=== PATIENT | female | born 1940 | race Caucasian/White ===

== ENCOUNTER 2022-10-18 17:07 | Emergency (ER) | payer MEDICARE ==
[~2022-10-18] VITALS: Ht 157.5 cm; Wt 64.4 kg
--- NOTE | 2022-10-18 17:20 | NUR ---
Pt seen by MD for bedside eval. Safety measures in place. Will continue to monitor.
--- NOTE | 2022-10-18 17:20 | NUR ---
PT DOES NOT REMEMBER THE NAMES AND DOSAGES OF HER HOME MEDICATION.
[2022-10-18 17:30] LABS: HEMATOCRIT 37.3 % (31.2-41.9); MEAN CORPUSCULAR HEMOGLOBIN 31.8 uug (24.7-32.8); MEAN CORPUSCULAR VOLUME 94.8 fL (75.5-95.3); PLATELET COUNT (AUTO) 282 K/uL (179-408)
--- NOTE | 2022-10-18 17:43 | NUR ---
UA sent to lab.
[2022-10-18 17:46] LABS: *BILIRUBIN,URIN NEGATIVE (NEGATIVE); *CLARITY,URINE CLEAR (CLEAR); *COLOR,URINE YELLOW (YELLOW); *KETONES,URINE 1+ (NEGATIVE); *UROBILINOGEN,URINE 0.2 E.U./dl (NORMAL); LEUKOCYTE ESTERASE ,URINE 1+ (NEGATIVE); NITRITE, URINE POSITIVE (NEGATIVE); PH,URINE 5.5 (5.0-8.0); UGLUCOSE NEGATIVE (NEGATIVE)
[2022-10-18 17:49] LABS: *BLOOD, URINE TRACE (NEGATIVE)
[2022-10-18 17:52] LABS: ALANINE AMINOTRANSFERASE 20 U/L (14-59); ALKALINE PHOSPHATASE 108 U/L (50-136); ASPARTATE AMINOTRANSFERASE 15 U/L (15-37); BILIRUBIN,DIRECT 0.1 mg/dL (0.0-0.2); BILIRUBIN,TOTAL 0.3 mg/dL (0.2-1.0); CARBON DIOXIDE 28 mmol/L (21-32); CHLORIDE 104 mmol/L (98-107); GLUCOSE 109 mg/dL (74-106); TOTAL PROTEIN, SERUM 7.3 g/dL (6.4-8.2); UREA NITROGEN, BLOOD 18 mg/dL (7-18)
[2022-10-18 18:00] LABS: RBC,URINE 0-3 /HPF (0-3)
[2022-10-18 18:01] LABS: BACTERIA,URINE MANY /HPF (NONE SEEN); SQUAMOUS EPITHELIAL CELL,UR FEW /HPF (NONE SEEN); WBC,URINE 20-50 /HPF (0-3)
--- NOTE | 2022-10-18 18:38 | NUR ---
Patient discharged to home in stable condition. Pt was picked up by friend via care. Written and verbal after care instructions given. Patient verbalizes understanding of instructions. Stressed follow up or return to ER for worsening s/s.
[2022-10-18 18:47] VITALS: BP 137/91
[2022-10-19] MEDS ORDERED: LEVO125T8 PO (17:36)
[2022-10-19] MEDS ORDERED: PRIM250T32 PO (19:56)
[2022-10-19] MEDS ORDERED: CARB1TAB21 PO (19:56)
== END 2022-10-18 18:47 | disposition home or self-care (01) ==
LOC: ER 17:09
DX: Z04.3 Encounter for examination and observation following other accident (principal); R07.89 Other chest pain; W18.39XA Other fall on same level, initial encounter; Y93.89 Activity, other specified; Y92.89 Other specified places as the place of occurrence of the external cause; Y99.8 Other external cause status
CPT/HCPCS: 36415; 71045; 84484; 85025; 93005; A4663

== ENCOUNTER 2022-10-19 11:48 | Inpatient (IN) | payer MEDICARE ==
[~2022-10-19] VITALS: Ht 157.5 cm; Wt 67.0 kg
--- NOTE | 2022-10-19 11:58 | NUR ---
PT DOES NOT TREMEMBER NAMES AND DOSAGES OF HER HOME MEDICATION.
[2022-10-19 12:14] LABS: HEMATOCRIT 37.6 % (31.2-41.9); MEAN CORPUSCULAR HEMOGLOBIN 32.2 uug (24.7-32.8); MEAN CORPUSCULAR VOLUME 94.5 fL (75.5-95.3); PLATELET COUNT (AUTO) 279 K/uL (179-408)
[2022-10-19 12:25] LABS: CARBON DIOXIDE 27 mmol/L (21-32); CHLORIDE 105 mmol/L (98-107); CREATININE 1.1 mg/dL (0.6-1.3); GLUCOSE 118 mg/dL (74-106); UREA NITROGEN, BLOOD 22 mg/dL (7-18)
[2022-10-19 12:33] LABS: ALANINE AMINOTRANSFERASE 32 U/L (14-59); ALKALINE PHOSPHATASE 105 U/L (50-136); ASPARTATE AMINOTRANSFERASE 52 U/L (15-37); BILIRUBIN,DIRECT 0.1 mg/dL (0.0-0.2); BILIRUBIN,TOTAL 0.4 mg/dL (0.2-1.0); LIPASE 51 U/L (73-393); TOTAL PROTEIN, SERUM 7.4 g/dL (6.4-8.2)
[2022-10-19] MEDS: IV NORMAL SALINE 500 ML BAG IV ONE ×2 (12:44→13:13)
[2022-10-19 12:53] LABS: *BILIRUBIN,URIN NEGATIVE (NEGATIVE); *BLOOD, URINE 2+ (NEGATIVE); *CLARITY,URINE CLEAR (CLEAR); *COLOR,URINE YELLOW (YELLOW); *KETONES,URINE 3+ (NEGATIVE); *UROBILINOGEN,URINE 0.2 E.U./dl (NORMAL); LEUKOCYTE ESTERASE ,URINE 1+ (NEGATIVE); NITRITE, URINE POSITIVE (NEGATIVE); PH,URINE 5.5 (5.0-8.0); UGLUCOSE NEGATIVE (NEGATIVE)
[2022-10-19 13:01] LABS: WBC,URINE 50-80 /HPF (0-3)
[2022-10-19 13:02] LABS: BACTERIA,URINE MANY /HPF (NONE SEEN)
[2022-10-19] MEDS ORDERED: CEFTRIAXONE 1 G in IV DEXTROSE 5% 50 ML IV ONE (13:15)
[2022-10-19] MEDS ORDERED: CEFTRIAXONE /D5W 50ML IVPB **ER PYXIS IV ONE (13:25)
--- NOTE | 2022-10-19 14:15 | NUR ---
Pt sleeping, no distress noted.
--- NOTE | 2022-10-19 16:00 | NUR ---
Pt sleeping, no distress noted.
[2022-10-19] MEDS ORDERED: LEVO125T8 PO (17:36)
--- NOTE | 2022-10-19 17:45 | NUR ---
Pt sleeping, arouses easily, no complaints, no distress noted.
--- NOTE | 2022-10-19 19:25 | NUR ---
Pt is noted in bed Lethargic but responsive as report is received from the off going nurse that Pt was brought from home by family due to S/P Fall and she is been admitted to Tele , Room 302. Pt care continue as report will be given to 3rd Floor Nurse.
[2022-10-19] MEDS ORDERED: MORPHINE SULFATE 2 MG/1 ML DISP.SYRIN IV PRN (19:45)
[2022-10-19] MEDS ORDERED: ONDANSETRON 4 MG/2 ML VIAL IV PRN (19:45)
[2022-10-19] MEDS ORDERED: ACETAMINOPHEN 325 MG TABLET PO PRN (19:45)
[2022-10-19] MEDS ORDERED: PRIM250T32 PO (19:56)
[2022-10-19] MEDS ORDERED: CARB1TAB21 PO (19:56)
--- NOTE | 2022-10-19 20:30 | NUR ---
Pt care continue as report is given to the 3rd Floor RN Sulma as Pt is been admitted under the care off DR. Scott , Tele status Room 302. Pt care continue.
--- NOTE | 2022-10-19 20:45 | NUR ---
Pt is noted off the unit to the 3RD Floor Room 302 as she is stable. Pt care continue.
[2022-10-19] MEDS: DOCUSATE SODIUM 100 MG CAPSULE PO SCH (21:00)
[2022-10-19 21:12] VITALS: BP 133/53
[2022-10-19] MEDS: IV 1/2NS 1000 ML 1,000 ML IV PRN (22:04)
[2022-10-20] MEDS ORDERED: REMEDY ESSENTIAL ZINC PASTE 113 GM TOP PRN (03:00)
[2022-10-20 04:28] VITALS: BP 124/52
[2022-10-20 06:32] LABS: HEMATOCRIT 33.6 % (31.2-41.9); MEAN CORPUSCULAR HEMOGLOBIN 31.7 uug (24.7-32.8); MEAN CORPUSCULAR VOLUME 95.7 fL (75.5-95.3); PLATELET COUNT (AUTO) 230 K/uL (179-408)
[2022-10-20] MEDS: PANTOPRAZOLE SODIUM 40 MG TABLET.DR PO SCH (06:35)
[2022-10-20 07:05] LABS: THYROID STIMULATING HORMONE < 0.007 mIU/mL (0.358-3.740)
[2022-10-20 07:06] LABS: CREATINE KINASE, TOTAL 779 U/L (26-192)
--- NOTE | 2022-10-20 07:07 | NUR ---
REPORT GIVEN TO EVERETT MARK
[2022-10-20 07:19] LABS: ALANINE AMINOTRANSFERASE 31 U/L (14-59); ALKALINE PHOSPHATASE 90 U/L (50-136); ASPARTATE AMINOTRANSFERASE 63 U/L (15-37); BILIRUBIN,TOTAL 0.4 mg/dL (0.2-1.0); CARBON DIOXIDE 26 mmol/L (21-32); CHLORIDE 107 mmol/L (98-107); CHOLESTEROL 186 mg/dL (<200); GLUCOSE 85 mg/dL (74-106); HDL CHOLESTEROL 46 mg/dL (40-60); MAGNESIUM 1.8 mg/dL (1.8-2.4); PHOSPHOROUS 2.9 mg/dL (2.5-4.9); POTASSIUM 3.8 mmol/L (3.5-5.1); TOTAL PROTEIN, SERUM 6.2 g/dL (6.4-8.2); TRIGLYCERIDES 166 MG/DL (30-150); UREA NITROGEN, BLOOD 22 mg/dL (7-18)
--- NOTE | 2022-10-20 07:45 | NUR ---
AWAKE ALERT AND VERBALLY RESPONSIVE RESTING COMFORTABLY IN BED DENIES PAIN OR SS OF DISTRESS. REQUIRES MIN MAX ASSIST IN ALL AREAS OF ADLS. ON CONTINUOUS IVF 1/2 NS 80 MLS/HR. SR ON MONITOR
[2022-10-20] MEDS ORDERED: LEVOTHYROXINE SODIUM 125 MCG TABLET PO SCH (09:00)
[2022-10-20] MEDS: IV 1/2NS 1000 ML 1,000 ML IV PRN ×2 (09:42→23:22)
[2022-10-20 11:30] VITALS: BP 127/52
--- NOTE | 2022-10-20 12:00 | NUR ---
NO ACUTE CHANGE FROM MORNING ASSESSMENT.
[2022-10-20] MEDS: CEFTRIAXONE 1 G in IV DEXTROSE 5% 50 ML IV SCH (13:25)
[2022-10-20] MEDS: CYANOCOBALAMIN 1000 MCG/ML VIAL IM SCH (15:16)
[2022-10-20 16:00] VITALS: BP 128/60
--- NOTE | 2022-10-20 16:29 | NUR ---
CONTINUE WITH IV ANTIBIOTIC NO SIGNS OF ALLERGY REACTION. REMAINS SR ON MONITOR
[2022-10-20 20:00] VITALS: BP 109/48
[2022-10-20] MEDS: DOCUSATE SODIUM 100 MG CAPSULE PO SCH (20:10)
[2022-10-21] VITALS: BP_SYST 112; BP_SYST 123; BP_DIAS 45; BP_DIAS 57
--- NOTE | 2022-10-21 | NUR ---
CT HEAD W/O CONTRAST ORDERED, OK TO DO IN AM PER ,.
[2022-10-21 04:00] VITALS: BP 107/52
[2022-10-21] MEDS: PANTOPRAZOLE SODIUM 40 MG TABLET.DR PO SCH (06:07)
--- NOTE | 2022-10-21 06:20 | NUR ---
Slept comfortably. Not in apparent distress. At 2130, Bladder scanner done, showed 256 ml. At 0400, pt voided. No signs of urinary retention. Kept clean and dry. All needs attended. Safety measures maintained.
[2022-10-21 06:36] LABS: HEMATOCRIT 33.9 % (31.2-41.9); MEAN CORPUSCULAR HEMOGLOBIN 32.1 uug (24.7-32.8); MEAN CORPUSCULAR VOLUME 96.1 fL (75.5-95.3); PLATELET COUNT (AUTO) 216 K/uL (179-408)
[2022-10-21 06:55] LABS: CREATININE 0.8 mg/dL (0.6-1.3); MAGNESIUM 1.8 mg/dL (1.8-2.4); PHOSPHOROUS 2.9 mg/dL (2.5-4.9); POTASSIUM 3.5 mmol/L (3.5-5.1)
[2022-10-21] MEDS ORDERED: LEVOTHYROXINE SODIUM 125 MCG TABLET PO SCH (07:00)
[2022-10-21 07:01] LABS: THYROID STIMULATING HORMONE 0.008 mIU/mL (0.358-3.740)
[2022-10-21] MEDS: CYANOCOBALAMIN 1000 MCG/ML VIAL IM SCH (08:41)
[2022-10-21] MEDS: ENSURE ENLIVE (VAN) 240 ML LIQUID PO SCH ×2 (08:46→17:36)
--- NOTE | 2022-10-21 09:00 | NUR ---
AWAKE ALERT RESPONDED APPROPRIATELY BUT IS SOMEWHAT DISORIENTED ALL NEEDS ANTICIPATED AND SATISFIED MAX ASSIST FOR ALL ADL MADE COMFORTABLE WILL CONTINUE TO OBSERVE.
[2022-10-21 11:47] VITALS: BP 142/58
[2022-10-21] MEDS: CEFTRIAXONE 1 G in IV DEXTROSE 5% 50 ML IV SCH (12:48)
[2022-10-21] MEDS: IV 1/2NS 1000 ML 1,000 ML IV PRN (13:27)
--- NOTE | 2022-10-21 14:00 | NUR ---
REMAIN ON IV ATB ORDERED WITH NO ADVERSE OR ALLERGIC REACTIONS AT THIS TIME.
--- NOTE | 2022-10-21 15:00 | NUR ---
PATIENT TAKEN BY BED TO RADIOLOGY DEPT FOR CT CHEST ORDERED PATIENT WAS NOT AGREEING TO GO BUT WAS EVENTUALLY CONVINCED AND IT WAS DONE.
[2022-10-21 16:00] VITALS: BP 146/51
--- NOTE | 2022-10-21 18:50 | NUR ---
PATIENT SEEN IN BED VERY RESTLESS AND AGGRESSIVE HER HEAD IS LYING ACROSS THE BED SCREAMING AT THE TOP OF HER VOICE VERY CONFUSED AND DISORIENTED AT RISKS FOR FALL SO THE FIRST STEP SURINDER DEFLATED FOR SAFETY DR NICHOLS NOTIFIED WITH NO NEW ORDERS AT THIS TIME.
--- NOTE | 2022-10-21 19:30 | NUR ---
RECD PT IN BED,VERY RESTLESS AND AGITATED, SCREAMING SO LOUDLY., VERY CONFUSED. DR. NICHOLS NOTIFIED AND OBTAINED MEDICATION TO CALM HER DOWN, , REPOSITIONED FOR COMFORT.OON TELE SINUS R/ SINUS,TACH 128, ,KEPT DRY AND CLEAN,
[2022-10-21 20:00] VITALS: BP 169/74
[2022-10-21] MEDS: LORAZEPAM 2 MG/1 ML VIAL IV PRN (20:43)
--- NOTE | 2022-10-21 20:48 | NUR ---
ATIVAN GIVEN IV ORDERED,IVFLUID INFUSING WELL VIARIGHT FORARM, CHECKED FOR SSX INFILTRATION, NONE NOTED.
[2022-10-21] MEDS: DOCUSATE SODIUM 100 MG CAPSULE PO SCH (22:00)
[2022-10-21] MEDS: ENALAPRILAT DIHYDRATE 1.25 MG/1 ML VIAL IV PRN (22:03)
--- NOTE | 2022-10-21 22:03 | NUR ---
BP [id number], NOTIFIED RE:ABOVE, VASOTEC ORDERED FOR SYSTOLIC BP ABOVE 150, RECHECKED AFTER 30 MIN.128/60, RESTING FAIRLY WELL..SINUS 76.MONITORED CLOSELY .
[2022-10-22] VITALS: BP 123/57
[2022-10-22] MEDS: LORAZEPAM 2 MG/1 ML VIAL IV PRN (04:42)
--- NOTE | 2022-10-22 05:19 | NUR ---
BLADDER SCAN DONE, INSIGNIFICCAT NERY NOTED, PT WAS INCONTINENT X 3,. DIAPER VERY SATURATED
[2022-10-22] MEDS: IV 1/2NS 1000 ML 1,000 ML IV PRN ×2 (05:29→21:43)
[2022-10-22] MEDS: LEVOTHYROXINE SODIUM 75 MCG TABLET PO SCH (06:40)
[2022-10-22 06:58] LABS: HEMATOCRIT 32.4 % (31.2-41.9); MEAN CORPUSCULAR HEMOGLOBIN 32.4 uug (24.7-32.8); MEAN CORPUSCULAR VOLUME 95.9 fL (75.5-95.3); PLATELET COUNT (AUTO) 217 K/uL (179-408)
[2022-10-22 07:40] LABS: CARBON DIOXIDE 28 mmol/L (21-32); CHLORIDE 109 mmol/L (98-107); CREATININE 0.8 mg/dL (0.6-1.3); GLUCOSE 99 mg/dL (74-106); MAGNESIUM 1.7 mg/dL (1.8-2.4); PHOSPHOROUS 3.2 mg/dL (2.5-4.9); POTASSIUM 3.4 mmol/L (3.5-5.1); UREA NITROGEN, BLOOD 12 mg/dL (7-18)
[2022-10-22] MEDS: PANTOPRAZOLE SODIUM 40 MG TABLET.DR PO SCH (08:45)
[2022-10-22] MEDS: CYANOCOBALAMIN 1000 MCG/ML VIAL IM SCH (08:45)
[2022-10-22] MEDS: ENSURE ENLIVE (VAN) 240 ML LIQUID PO SCH ×2 (08:46→17:33)
--- NOTE | 2022-10-22 09:00 | NUR ---
RECEIVED PATIENT IN BED AWAKE VERY CONFUSED AND DISORIENTED NOTED THAT HER IV HEPLOCK WAS OUT AT THIS TIME PATIENT STARTS TO SCREAM WHEN ATTEMPT TO REPOSITION HER MAX ASSIST FOR ALL ADL WILL REINSERT IV SOON ABLE.
[2022-10-22] MEDS ORDERED: MAGNESIUM OXIDE 400 MG TABLET PO ONE (11:00)
[2022-10-22 11:30] VITALS: BP 184/68
[2022-10-22] MEDS ORDERED: POTASSIUM CHLORIDE 10 MEQ TAB.PRT.SR PO ONE (11:30)
[2022-10-22] MEDS: PRIMIDONE 250 MG TABLET PO SCH ×2 (11:35→17:27)
[2022-10-22] MEDS: CARBIDOPA/LEVODOPA 25-100MG TABLET PO SCH ×2 (11:35→17:28)
--- NOTE | 2022-10-22 11:40 | NUR ---
MAG LEVEL IS 1.7 POTASSIUM IS 3.4 WITH REPLACEMENT ORDERS AND NOTED
[2022-10-22] MEDS: ENALAPRILAT DIHYDRATE 1.25 MG/1 ML VIAL IV PRN (12:04)
--- NOTE | 2022-10-22 12:05 | NUR ---
BLOOD PRESSURE IS 184/68 MEDICATED WITH VASOTEC ORDERED HAS PEROIDS OF AGITATION AND RESTLESSNESS PATIENT ENCOURAGRD TO TRY TO RELAX AND EXPRESSED UNDERSTANDING.WILL CONTINUE TO OBSERVE.
[2022-10-22] MEDS: CEFTRIAXONE 1 G in IV DEXTROSE 5% 50 ML IV SCH (12:18)
--- NOTE | 2022-10-22 12:32 | NUR ---
WOUND CARE CONSULT: PT PRESENTS WITH LEFT FOREARM DRY ABRASIONS, LEFT BREASTFOLD REDNESS, SACRAL SCARRING WITH DISCOLORATION AND AREAS OF SKIN DISCOLORATION TO LOWER EXTREMITIES, PRESENT ON ADMISSION. RECOMMENDATIONS MADE FOR SKIN PROTECTION. DISCUSSED WITH NURSING STAFF. PT IS INCONTINENT. IN AGREEMENT WITH PLAN OF CARE. Addendum: 10/22/22 at 1236 by BETSY ATWOOD RN Amended: Links added. Addendum: 10/22/22 at 1236 by BETSY ATWOOD RN PT IS ON FIRST STEP [facility].
--- NOTE | 2022-10-22 13:59 | NUR ---
ULTRA SOUND TECH HERE TO DO ULTRA SOUND OF THE LEFT BREAST ORDERED BUT PATIENT REFUSED STATED THAT THERE IS NOTHING WRONG WITH HER BREAST WAS UNABLE TO CONVINCE HER WILL NOTIFY DR MOON.
--- NOTE | 2022-10-22 14:03 | NUR ---
Pt refused breast ultrasound, notified RN. CT chest was completed no mention of left breast mass.
[2022-10-22] MEDS: CLOTRIMAZOLE 1% CREAM 30 GM TUBE TOP SCH (17:28)
--- NOTE | 2022-10-22 18:00 | NUR ---
IN BED EATING DINNER MORE ALERT AND MORE COOPERATIVE AT THIS TIME DENIES PAIN OR DISCOMFORTS IVF IN PROGRESS IV SITE RIGHT HAND IS INTACT WRAPPER WITH KIRLIX ALL NEEDS ATTENDED TO MADE COMFORTABLE WILL CONTINUE TO OBSERVE.
[2022-10-22 20:00] VITALS: BP 157/67
[2022-10-22] MEDS: DOCUSATE SODIUM 100 MG CAPSULE PO SCH (21:07)
[2022-10-23] VITALS: BP 138/58
[2022-10-23] MEDS: LORAZEPAM 2 MG/1 ML VIAL IV PRN (01:16)
[2022-10-23 04:00] VITALS: BP 148/73
[2022-10-23] MEDS: PANTOPRAZOLE SODIUM 40 MG TABLET.DR PO SCH (06:12)
[2022-10-23] MEDS: LEVOTHYROXINE SODIUM 75 MCG TABLET PO SCH (06:12)
[2022-10-23 07:12] LABS: HEMATOCRIT 34.4 % (31.2-41.9); MEAN CORPUSCULAR HEMOGLOBIN 31.8 uug (24.7-32.8); PLATELET COUNT (AUTO) 239 K/uL (179-408)
[2022-10-23] MEDS: IV 1/2NS 1000 ML 1,000 ML IV PRN (07:30)
[2022-10-23 07:31] LABS: CARBON DIOXIDE 26 mmol/L (21-32); CHLORIDE 104 mmol/L (98-107); CREATININE 0.8 mg/dL (0.6-1.3); GLUCOSE 139 mg/dL (74-106); MAGNESIUM 1.7 mg/dL (1.8-2.4); PHOSPHOROUS 2.9 mg/dL (2.5-4.9); POTASSIUM 3.5 mmol/L (3.5-5.1); UREA NITROGEN, BLOOD 11 mg/dL (7-18)
--- NOTE | 2022-10-23 07:50 | NUR ---
REPORT GIVEN TO EVERETT LLANES
[2022-10-23 08:29] VITALS: BP 132/79
[2022-10-23] MEDS: CLOTRIMAZOLE 1% CREAM 30 GM TUBE TOP SCH (08:32)
[2022-10-23] MEDS: CYANOCOBALAMIN 1000 MCG/ML VIAL IM SCH (08:32)
[2022-10-23] MEDS: CARBIDOPA/LEVODOPA 25-100MG TABLET PO SCH (08:32)
[2022-10-23] MEDS: PRIMIDONE 250 MG TABLET PO SCH (08:32)
[2022-10-23] MEDS: ENSURE ENLIVE (VAN) 240 ML LIQUID PO SCH (08:32)
--- NOTE | 2022-10-23 09:43 | NUR ---
pt tolerated PT well. pt walks 200ft. no sob noted. denies any pain.
[2022-10-23] MEDS ORDERED: MAGNESIUM SULFATE/D5W 100 ML IV SCH (10:00)
[2022-10-23] MEDS ORDERED: POTASSIUM CHLORIDE 10 MEQ, LIDOCAINE-MPF 1% 1 ML in IV DEXTROSE 5% 100 ML IV SCH (10:00)
[2022-10-23] MEDS ORDERED: POTASSIUM CHLORIDE 20 MEQ TAB.PRT.SR PO ONE (10:15)
[2022-10-23] MEDS ORDERED: CEFT1FRO2 IV (10:18)
[2022-10-23] MEDS ORDERED: CLOT30CR24 TOP (10:18)
[2022-10-23] MEDS ORDERED: LEVO75TA7 PO (10:18)
[2022-10-23] MEDS ORDERED: MAGNESIUM OXIDE 400 MG TABLET PO ONE (10:30)
[2022-10-23 11:35] VITALS: BP 127/52
[2022-10-23] MEDS: CEFTRIAXONE 1 G in IV DEXTROSE 5% 50 ML IV SCH (12:03)
--- NOTE | 2022-10-23 14:34 | NUR ---
pt is discharge. pt will be transfer to [facility] for continuation of care. report given to Cherise FLOYD. pt alert and oriented x 2. confused at times. ambulatory with FWW. pt will continue abx tx for 3 more days. iv access left in placed. exit care rendered. all belongings accounted for. 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
== END 2022-10-23 14:30 | DRG 557 ==
LOC: ER 11:52 → TRANSITION 14:54 → TELE3 20:39
PROVIDERS: ADMIT Internal Medicine; ATTEND Internal Medicine
DX: M62.82 Rhabdomyolysis (principal); G93.41 Metabolic encephalopathy; N39.0 Urinary tract infection, site not specified; D68.59 Other primary thrombophilia; G20 Parkinson's disease; R29.6 Repeated falls; B96.20 Unspecified Escherichia coli [E. coli] as the cause of diseases classified elsewhere; E87.6 Hypokalemia; E86.0 Dehydration; E83.42 Hypomagnesemia; E66.9 Obesity, unspecified; Z68.27 Body mass index [BMI] 27.0-27.9, adult; F02.80 Dementia in other diseases classified elsewhere, unspecified severity, without behavioral disturbance, psychotic disturbance, mood disturbance, and anxiety; R93.1 Abnormal findings on diagnostic imaging of heart and coronary circulation; K44.9 Diaphragmatic hernia without obstruction or gangrene; M50.31 Other cervical disc degeneration, high cervical region; M48.02 Spinal stenosis, cervical region; E03.9 Hypothyroidism, unspecified; S09.90XA Unspecified injury of head, initial encounter; W01.0XXA Fall on same level from slipping, tripping and stumbling without subsequent striking against object, initial encounter; Y92.039 Unspecified place in apartment as the place of occurrence of the external cause; Z74.09 Other reduced mobility
CPT/HCPCS: 36415; 70450; 70486; 71045; 71250; 72125; 83690; 83735; 84100; 84443; 84484; 85025; 85730; 93005; 93307; A4663; A6213; G0378; J0696; J2060; J3420; J3490; J7040; J7042

== ENCOUNTER 2023-05-28 10:18 | Inpatient (IN) | payer MEDICARE ==
[~2023-05-28] VITALS: Ht 157.5 cm; Wt 54.4 kg
[~2023-05-28 10:18] MED LIST: CARB1TAB21 PO; CEFT1FRO2 IV; CLOT30CR24 TOP; LEVO75TA7 PO; PRIM250T32 PO
[2023-05-28] MEDS ORDERED: CEFTRIAXONE 2 G in IV DEXTROSE 5% 100 ML IV ONE (10:30)
[2023-05-28] MEDS ORDERED: DEXAMETHASONE SOD PHOSPHATE 4 MG INJ IV ONE (10:30)
[2023-05-28] MEDS ORDERED: VANCOMYCIN IV 1,000 MG in IV DEXTROSE 5% 250 ML IV ONE (10:30)
[2023-05-28] MEDS ORDERED: IV NORMAL SALINE 1000 ML BAG IV ONE (10:30)
[2023-05-28] MEDS ORDERED: ATOR10TA PO (10:40)
[2023-05-28] MEDS ORDERED: DEXAMETHASONE SOD PHOSPHATE 10 MG INJ ONE (10:54)
[2023-05-28] MEDS ORDERED: CEFTRIAXONE 1 G VIAL ONE (10:54)
[2023-05-28] MEDS ORDERED: VANCOMYCIN IV 200 ML ONE (10:54)
[2023-05-28] MEDS ORDERED: CEFTRIAXONE /D5W 50ML IVPB **ER PYXIS IV ONE (10:54)
[2023-05-28 10:57] LABS: BASOPHILS % (AUTO) 0.7 % (0.0-2.0); DIFFERENTIAL COMMENT 0; EOSINOPHILS # (AUTO) 0.3 K/uL (0.0-0.7); EOSINOPHILS % (AUTO) 4.5 % (0.0-7.0); HEMATOCRIT 35.4 % (31.2-41.9); HEMOGLOBIN 11.9 g/dL (10.9-14.3); LYMPHOCYTES # (AUTO) 1.7 K/uL (0.8-4.8); LYMPHOCYTES % (AUTO) 24.5 % (20.5-51.5); MEAN CORPUSCULAR HEMOGLOBIN 31.7 uug (24.7-32.8); MEAN CORPUSCULAR HGB CONC 34 g/dL (32.3-35.6); MEAN CORPUSCULAR VOLUME 94.1 fL (75.5-95.3); MONOCYTES # (AUTO) 0.6 K/uL (0.1-1.30); MONOCYTES % (AUTO) 8.9 % (0.0-11.0); NEUTROPHILS # (AUTO) 4.3 K/uL (1.8-8.9); NEUTROPHILS % (AUTO) 61.4 % (38.5-71.5); PLATELET COUNT (AUTO) 254 K/uL (179-408); RED BLOOD CELL COUNT(AUTO) 3.76 MIL/uL (3.63-4.92); RED CELL DISTRIBUTION WIDTH 15.5 % (12.3-17.7)
[2023-05-28 11:04] LABS: CALCIUM 10.3 mg/dL (8.5-10.1); CARBON DIOXIDE 27 mmol/L (21-32); CHLORIDE 102 mmol/L (98-107); GLUCOSE 115 mg/dL (74-106); POTASSIUM 3.3 mmol/L (3.5-5.1); SODIUM SERUM 138 mmol/L (136-145); UREA NITROGEN, BLOOD 28 mg/dL (7-18)
[2023-05-28 11:23] LABS: ALANINE AMINOTRANSFERASE 9 U/L (14-59); ALBUMIN 3.6 g/dL (3.4-5.0); ALKALINE PHOSPHATASE 89 U/L (50-136); ASPARTATE AMINOTRANSFERASE 37 U/L (15-37); BILIRUBIN,DIRECT 0.1 mg/dL (0.0-0.2); BILIRUBIN,TOTAL 0.4 mg/dL (0.2-1.0); NT-PRO BNP 1088 pg/mL (0-125); TOTAL PROTEIN, SERUM 7.2 g/dL (6.4-8.2)
[2023-05-28 12:01] LABS: *BILIRUBIN,URIN 3+ (NEGATIVE); *BLOOD, URINE NEGATIVE (NEGATIVE); *CLARITY,URINE CLEAR (CLEAR); *COLOR,URINE YELLOW (YELLOW); *KETONES,URINE 3+ (NEGATIVE); *PROTEIN,URINE 2+ (NEGATIVE); LEUKOCYTE ESTERASE ,URINE NEGATIVE (NEGATIVE); NITRITE, URINE NEGATIVE (NEGATIVE); PH,URINE 5.5 (5.0-8.0); UGLUCOSE NEGATIVE (NEGATIVE)
[2023-05-28 12:36] LABS: BACTERIA,URINE NONE SEEN /HPF (NONE SEEN); CALCIUM OXALATE CRYSTALS,UR MODERATE /HPF (NONE SEEN); RBC,URINE 0-3 /HPF (0-3); SQUAMOUS EPITHELIAL CELL,UR FEW /HPF (NONE SEEN); WBC,URINE 0-3 /HPF (0-3)
[2023-05-28 17:07] VITALS: BP 135/74; TEMP 97.6; O2SAT 99
[2023-05-28] MEDS ORDERED: ONDANSETRON 4 MG/2 ML VIAL IV PRN (17:30)
[2023-05-28] MEDS ORDERED: ACETAMINOPHEN 325 MG TABLET PO PRN (17:30)
[2023-05-28] MEDS ORDERED: IV NS 1000 ML 1,000 ML IV PRN (17:30)
[2023-05-28] MEDS: CARBIDOPA/LEVODOPA 25-100MG TABLET PO SCH (18:59)
[2023-05-28] MEDS: PRIMIDONE 250 MG TABLET PO SCH (19:30)
[2023-05-28 20:06] VITALS: BP 132/63; TEMP 97.7; O2SAT 98
[2023-05-28] MEDS ORDERED: ENOXAPARIN SODIUM 40 MG/0.4 ML DISP.SYRIN SQ SCH (21:00)
[2023-05-28] MEDS ORDERED: ATORVASTATIN 10 MG TABLET PO SCH (21:00)
[2023-05-29 04:33] VITALS: BP 136/59; TEMP 97.9; O2SAT 98
[2023-05-29 06:36] LABS: BASOPHILS % (AUTO) 0.9 % (0.0-2.0); EOSINOPHILS # (AUTO) 0.2 K/uL (0.0-0.7); EOSINOPHILS % (AUTO) 3.2 % (0.0-7.0); HEMATOCRIT 28.5 % (31.2-41.9); HEMOGLOBIN 9.7 g/dL (10.9-14.3); LYMPHOCYTES # (AUTO) 2.2 K/uL (0.8-4.8); LYMPHOCYTES % (AUTO) 40.8 % (20.5-51.5); MEAN CORPUSCULAR HEMOGLOBIN 32.2 uug (24.7-32.8); MEAN CORPUSCULAR HGB CONC 34 g/dL (32.3-35.6); MEAN CORPUSCULAR VOLUME 94.3 fL (75.5-95.3); MONOCYTES # (AUTO) 0.4 K/uL (0.1-1.30); NEUTROPHILS # (AUTO) 2.6 K/uL (1.8-8.9); NEUTROPHILS % (AUTO) 48.1 % (38.5-71.5); PLATELET COUNT (AUTO) 193 K/uL (179-408); RED BLOOD CELL COUNT(AUTO) 3.02 MIL/uL (3.63-4.92); RED CELL DISTRIBUTION WIDTH 15.5 % (12.3-17.7); WHITE BLOOD COUNT (AUTO) 5.5 K/uL (3.8-11.8)
[2023-05-29 06:38] LABS: DIFFERENTIAL COMMENT 1
[2023-05-29 06:51] LABS: CARBON DIOXIDE 26 mmol/L (21-32); CHLORIDE 107 mmol/L (98-107); CREATININE 0.8 mg/dL (0.6-1.3); GLUCOSE 84 mg/dL (74-106); MAGNESIUM 1.6 mg/dL (1.8-2.4); PHOSPHOROUS 2.8 mg/dL (2.5-4.9); SODIUM SERUM 144 mmol/L (136-145); UREA NITROGEN, BLOOD 21 mg/dL (7-18)
[2023-05-29] MEDS ORDERED: LEVOTHYROXINE SODIUM 75 MCG TABLET PO SCH (07:00)
[2023-05-29] MEDS: PRIMIDONE 250 MG TABLET PO SCH (09:17)
[2023-05-29] MEDS: CARBIDOPA/LEVODOPA 25-100MG TABLET PO SCH (09:17)
[2023-05-29] MEDS: POTASSIUM CHLORIDE 10 MEQ TAB.PRT.SR PO SCH ×2 (10:54→14:49)
[2023-05-29] MEDS: MAGNESIUM SULFATE/D5W 100 ML IV SCH ×2 (10:55→12:40)
[2023-05-29 11:29] VITALS: BP 111/49; TEMP 98.5; O2SAT 97
[2023-05-29] MEDS ORDERED: LEVO50TA8 PO (14:03)
[2023-05-29 15:14] VITALS: BP 128/60; TEMP 97.6; O2SAT 98
[2023-05-30] MEDS ORDERED: LEVOTHYROXINE SODIUM 50 MCG TABLET PO SCH (07:00)
[2023-05-30] MEDS ORDERED: LEVOTHYROXINE SODIUM 75 MCG TABLET PO SCH (07:00)
== END 2023-05-29 16:30 | disposition home or self-care (01) | DRG 640 ==
LOC: ER 10:18 → TELE3 15:51 → MEDSURG3 21:22
PROVIDERS: ADMIT Nurse Practitioner Acute Care; ATTEND Nurse Practitioner Acute Care
DX: E86.0 Dehydration (principal); G93.41 Metabolic encephalopathy; E83.52 Hypercalcemia; R62.7 Adult failure to thrive; Z68.21 Body mass index [BMI] 21.0-21.9, adult; E87.20 Acidosis, unspecified; R29.6 Repeated falls; Z87.440 Personal history of urinary (tract) infections; K44.9 Diaphragmatic hernia without obstruction or gangrene; M50.30 Other cervical disc degeneration, unspecified cervical region; E03.9 Hypothyroidism, unspecified; E87.6 Hypokalemia; G20.A1 Parkinson's disease without dyskinesia, without mention of fluctuations; Z79.890 Hormone replacement therapy; R79.89 Other specified abnormal findings of blood chemistry
CPT/HCPCS: 36415; 70450; 71045; 83605; 83735; 84100; 84443; 84484; 85025; 85730; 87040; 93005; A4606; A4663; G0378; J0696; J1100; J1650; J3370; J3475; J7040